=== PATIENT | male | born 1975 | race Asian ===

== ENCOUNTER 2022-02-20 21:41 | Inpatient (IN) | payer OTHER ==
[2022-02-20] MEDS ORDERED: DEXAMETHASONE SOD PHOSPHATE 10 MG/1 ML VIAL IVPUSH ONE (22:30)
[2022-02-20] MEDS ORDERED: diazePAM 5 MG TABLET PO ONE (22:30)
[2022-02-20] MEDS ORDERED: diazePAM 5 MG TABLET ONE (22:56)
[2022-02-20] MEDS ORDERED: DEXAMETHASONE SOD PHOSPHATE 10 MG/1 ML VIAL ONE (22:57)
[2022-02-20 23:02] LABS: BASO % 0.7 % (0-2.0); EOS % 2.2 % (0-4.5); HEMOGLOBIN 14.9 GM/dL (11.7-16.9); LYMPH % 54.5 % (8-40); MCH 29.9 pg (25.7-33.7); MCHC 34.6 g/dl (32.0-35.9); MEAN CELL VOLUME 86.3 fl (80-96); MEAN PLT VOLUME 9.4 fl (7.5-11.1); MONO % 8.7 % (3.8-10.2); NEUT % 33.9 % (42.8-82.8); PLATELET COUNT 183 10^3/uL (134-434); RBC 4.99 M/mm3 (4.00-5.60); RDW 12.8 % (11.9-15.9); WHITE BLOOD COUNT 4.4 K/mm3 (4.0-10.0)
[2022-02-20 23:22] LABS: CHLORIDE 97 mmol/L (98-107); SODIUM 133 mmol/L (136-145)
[2022-02-20 23:23] LABS: ALBUMIN 4.6 g/dl (3.4-5.0); ANION GAP 8 MMOL/L (8-16); BLOOD UREA NITROGEN 18.6 mg/dL (7-18); CALCIUM 9.1 mg/dL (8.5-10.1); CO2 27 mmol/L (21-32); GLUCOSE,RANDOM 95 mg/dL (74-106)
[2022-02-20 23:26] LABS: EPI CELLS 1 /uL (0-25.1); HYALINE CASTS 0 /uL (0-3.1); PH,URINE 7.5 (5.0-8.0); URINE APPEARANCE CLEAR; URINE BACTERIA 2 /uL (0-1359); URINE BILIRUBIN NEGATIVE (NEGATIVE); URINE COLOR YELLOW; URINE GLUCOSE (UA) NEGATIVE (NEGATIVE); URINE KETONE TRACE (NEGATIVE); URINE LEUK ESTERASE NEGATIVE (NEGATIVE); URINE NITRITE NEGATIVE (NEGATIVE); URINE PROTEIN NEGATIVE (NEGATIVE); URINE RBC 56 /uL (0-23.9); URINE WBC 6 /uL (0-25.8)
[2022-02-20 23:26] LABS: SGOT/AST 17 U/L (15-37); SGPT/ALT 39 U/L (13-61)
[2022-02-20 23:28] LABS: BILIRUBIN,TOTAL 1.2 mg/dL (0.2-1); CREATININE 0.9 mg/dL (0.55-1.3); TOT PROT 7.4 g/dl (6.4-8.2)
[2022-02-20 23:29] LABS: ALK PHOS 53 U/L (45-117)
[2022-02-20] MEDS ORDERED: morphine CARPU-JECT 4 MG/1 ML DISP.SYRIN IVPUSH ONE (23:32)
[2022-02-20] MEDS ORDERED: morphine SULFATE 4 MG/ML VIAL ONE (23:40)
[2022-02-21] MEDS ORDERED: KETOROLAC TROMETHAMINE 15 MG/ML VIAL IVPUSH ONE (01:34)
[2022-02-21] MEDS ORDERED: KETOROLAC TROMETHAMINE 30 MG/1 ML VIAL ONE (01:36)
[2022-02-21] MEDS ORDERED: morphine CARPU-JECT 4 MG/1 ML DISP.SYRIN IVPUSH ONE (03:15)
[2022-02-21] MEDS ORDERED: morphine SULFATE 4 MG/ML VIAL ONE (03:15)
[2022-02-21] MEDS ORDERED: EPINEPHrine/PF 1 MG/1 ML (1:1,000) AMPULE ONE (03:38)
[2022-02-21] MEDS ORDERED: HYDROmorphone HCL CARPU-JECT 2 MG/1 ML DISP.SYRIN IVPUSH ONE ×2 (05:37→08:26)
[2022-02-21] MEDS ORDERED: HYDROmorphone HCl 2 MG/ML VIAL ONE ×2 (05:38→08:15)
[2022-02-21] MEDS ORDERED: ACETAMINOPHEN INJECTION 100 ML IVPB ONE (05:39)
[2022-02-21] MEDS: ACETAMINOPHEN 1000 MG/100 ML BAG IVPB PRN ×2 (05:46→16:32)
[2022-02-21] MEDS ORDERED: diazePAM CARPU-JECT 10 MG/2 ML DISP.SYRIN IVPUSH ONE (08:38)
[2022-02-21] MEDS ORDERED: INSULIN (NOVOLOG) ASPART 100 UNITS/ML 10ML VIAL ONE (09:19)
[2022-02-21] MEDS ORDERED: diazePAM CARPU-JECT 10 MG/2 ML DISP.SYRIN ONE (10:01)
[2022-02-21] MEDS ORDERED: PANTOPRAZOLE 40 MG TABLET PO ONE (10:01)
[2022-02-21] MEDS ORDERED: DEXAMETHASONE SOD PHOSPHATE 10 MG/1 ML VIAL ONE (10:02)
[2022-02-21] MEDS ORDERED: DOCUSATE SODIUM 100 MG CAPSULE (FP) PO ONE (10:02)
[2022-02-21] MEDS: DEXAMETHASONE SOD PHOSPHATE 4 MG/1 ML VIAL IVPUSH SCH ×3 (10:10→21:06)
[2022-02-21] MEDS: DOCUSATE SODIUM 100 MG CAPSULE (FP) PO SCH ×2 (10:10→21:06)
[2022-02-21] MEDS: PANTOPRAZOLE 40 MG TABLET PO SCH (10:10)
[2022-02-21] MEDS: DEXTROSE 5%-NORMAL SALINE 1,000 ML IV SCH (12:29)
[2022-02-21] MEDS: POLYETHYLENE GLYCOL (HEALTHYLAX) 3350 17 GM PACKET PO PRN (12:34)
[2022-02-21] MEDS: HYDROmorphone HCl 2 MG/ML VIAL IVPB PRN ×2 (12:34→21:09)
[2022-02-21] MEDS: GABAPENTIN 100 MG CAPSULE PO SCH ×2 (13:05→21:07)
[2022-02-21 14:02] VITALS: BMI 25.0
[2022-02-22] MEDS: DEXAMETHASONE SOD PHOSPHATE 4 MG/1 ML VIAL IVPUSH SCH ×4 (02:11→21:19)
[2022-02-22] MEDS: ACETAMINOPHEN 1000 MG/100 ML BAG IVPB PRN (02:27)
[2022-02-22] MEDS: HYDROmorphone HCl 2 MG/ML VIAL IVPB PRN ×2 (03:14→12:28)
[2022-02-22] MEDS: GABAPENTIN 100 MG CAPSULE PO SCH (05:23)
[2022-02-22] MEDS: DEXTROSE 5%-NORMAL SALINE 1,000 ML IV SCH (05:27)
[2022-02-22] MEDS ORDERED: diazePAM 2 MG TABLET PO PRN (08:17)
[2022-02-22 08:36] LABS: HEMATOCRIT 46.2 % (35.4-49); HEMOGLOBIN 16.1 GM/dL (11.7-16.9); MCH 30.1 pg (25.7-33.7); MCHC 34.9 g/dl (32.0-35.9); MEAN CELL VOLUME 86.4 fl (80-96); MEAN PLT VOLUME 9.6 fl (7.5-11.1); PLATELET COUNT 204 10^3/uL (134-434); RBC 5.34 M/mm3 (4.00-5.60); RDW 12.7 % (11.9-15.9); WHITE BLOOD COUNT 8.6 K/mm3 (4.0-10.0)
[2022-02-22 08:57] LABS: CALCIUM 9.6 mg/dL (8.5-10.1)
[2022-02-22 08:58] LABS: BLOOD UREA NITROGEN 20.4 mg/dL (7-18)
[2022-02-22 09:01] LABS: CREATININE 0.7 mg/dL (0.55-1.3)
[2022-02-22] MEDS: HEPARIN NA (PORCINE) 5,000 UNITS/ML 1ML VIAL SQ SCH ×2 (09:14→21:20)
[2022-02-22] MEDS: DOCUSATE SODIUM 100 MG CAPSULE (FP) PO SCH ×2 (09:14→21:18)
[2022-02-22] MEDS: PANTOPRAZOLE 40 MG TABLET PO SCH (09:14)
[2022-02-22] MEDS: POLYETHYLENE GLYCOL (HEALTHYLAX) 3350 17 GM PACKET PO PRN (09:58)
[2022-02-22] MEDS ORDERED: GABAPENTIN 300 MG CAPSULE PO SCH ×2 (14:00→22:00)
[2022-02-22] MEDS: KETOROLAC TROMETHAMINE 30 MG/1 ML VIAL IVPUSH SCH (18:39)
[2022-02-22] MEDS: GABAPENTIN 300 MG CAPSULE PO SCH (21:19)
[2022-02-23] MEDS: KETOROLAC TROMETHAMINE 30 MG/1 ML VIAL IVPUSH SCH ×3 (01:10→17:32)
[2022-02-23] MEDS: DEXAMETHASONE SOD PHOSPHATE 4 MG/1 ML VIAL IVPUSH SCH ×4 (02:37→21:56)
[2022-02-23] MEDS: GABAPENTIN 300 MG CAPSULE PO SCH ×2 (09:07→21:55)
[2022-02-23] MEDS: PANTOPRAZOLE 40 MG TABLET PO SCH (09:07)
[2022-02-23] MEDS: DOCUSATE SODIUM 100 MG CAPSULE (FP) PO SCH ×2 (09:07→21:55)
[2022-02-23] MEDS: HEPARIN NA (PORCINE) 5,000 UNITS/ML 1ML VIAL SQ SCH (09:17)
[2022-02-23] MEDS ORDERED: SODIUM PHOSPHATE/NA BIPHOS 133 ML ENEMA RC ONE (10:44)
[2022-02-23] MEDS ORDERED: GABAPENTIN 300 MG CAPSULE PO SCH ×2 (10:49→11:30)
[2022-02-23] MEDS: HYDROmorphone HCl 2 MG/ML VIAL IVPB PRN ×2 (11:34→22:02)
[2022-02-23] MEDS: POLYETHYLENE GLYCOL (HEALTHYLAX) 3350 17 GM PACKET PO PRN (12:23)
[2022-02-23 16:04] LABS: CALCIUM 9.2 mg/dL (8.5-10.1)
[2022-02-23 16:05] LABS: BLOOD UREA NITROGEN 24.3 mg/dL (7-18)
[2022-02-23 16:08] LABS: CREATININE 0.9 mg/dL (0.55-1.3)
[2022-02-24] MEDS: KETOROLAC TROMETHAMINE 30 MG/1 ML VIAL IVPUSH SCH ×3 (01:18→17:44)
[2022-02-24] MEDS: DEXAMETHASONE SOD PHOSPHATE 4 MG/1 ML VIAL IVPUSH SCH ×4 (03:23→21:59)
[2022-02-24] MEDS: HYDROmorphone HCl 2 MG/ML VIAL IVPB PRN ×3 (04:34→18:28)
[2022-02-24] MEDS: DOCUSATE SODIUM 100 MG CAPSULE (FP) PO SCH ×2 (09:05→21:59)
[2022-02-24] MEDS: GABAPENTIN 300 MG CAPSULE PO SCH ×3 (09:07→21:59)
[2022-02-24] MEDS: PANTOPRAZOLE 40 MG TABLET PO SCH (09:07)
[2022-02-24] MEDS: Methylnaltrexone Bromide 12 MG/0.6 ML KIT SQ SCH (10:56)
[2022-02-24] MEDS: POLYETHYLENE GLYCOL (HEALTHYLAX) 3350 17 GM PACKET PO SCH (14:45)
[2022-02-24] MEDS: diazePAM 5 MG TABLET PO SCH (23:21)
[2022-02-25] MEDS: KETOROLAC TROMETHAMINE 30 MG/1 ML VIAL IVPUSH SCH ×2 (02:24→09:51)
[2022-02-25] MEDS: DEXAMETHASONE SOD PHOSPHATE 4 MG/1 ML VIAL IVPUSH SCH ×4 (02:25→21:05)
[2022-02-25] MEDS: HYDROmorphone HCl 2 MG/ML VIAL IVPB PRN ×2 (06:19→15:58)
[2022-02-25] MEDS ORDERED: LIDOCAINE HCL/PF 1% SDV 5ML VIAL ONE (07:38)
[2022-02-25] MEDS ORDERED: DEXAMETHASONE SOD PHOSPHATE 10 MG/1 ML VIAL ONE (07:38)
[2022-02-25] MEDS: POLYETHYLENE GLYCOL (HEALTHYLAX) 3350 17 GM PACKET PO SCH (09:54)
[2022-02-25] MEDS: DOCUSATE SODIUM 100 MG CAPSULE (FP) PO SCH ×2 (09:54→21:33)
[2022-02-25] MEDS: GABAPENTIN 300 MG CAPSULE PO SCH ×3 (09:54→21:32)
[2022-02-25] MEDS: PANTOPRAZOLE 40 MG TABLET PO SCH (09:54)
[2022-02-25] MEDS: Methylnaltrexone Bromide 12 MG/0.6 ML KIT SQ SCH (11:28)
[2022-02-25] MEDS ORDERED: MINERAL OIL ENEMA 133 ML ENEMA RC ONE (12:38)
[2022-02-25] MEDS ORDERED: IOHEXOL 180 MG/1 ML ML IJ ONE ×2 (12:46)
[2022-02-25] MEDS ORDERED: LIDOCAINE 1% P/F 10 MG/ML VIAL PNB ONE ×2 (12:46)
[2022-02-25] MEDS ORDERED: DEXAMETHASONE SOD PHOSPHATE 10 MG/1 ML VIAL IVPUSH ONE ×2 (12:46)
[2022-02-25] MEDS: KETOROLAC TROMETHAMINE 30 MG/1 ML VIAL IVPUSH PRN (18:23)
[2022-02-25] MEDS: diazePAM 5 MG TABLET PO SCH (21:33)
[2022-02-26] MEDS: HYDROmorphone HCl 2 MG/ML VIAL IVPB PRN ×4 (01:59→23:01)
[2022-02-26] MEDS: DEXAMETHASONE SOD PHOSPHATE 4 MG/1 ML VIAL IVPUSH SCH ×4 (02:53→21:36)
[2022-02-26] MEDS: KETOROLAC TROMETHAMINE 30 MG/1 ML VIAL IVPUSH PRN (06:09)
[2022-02-26 08:50] LABS: HEMATOCRIT 46.4 % (35.4-49); HEMOGLOBIN 15.6 GM/dL (11.7-16.9); MCHC 33.7 g/dl (32.0-35.9); MEAN CELL VOLUME 85.9 fl (80-96); MEAN PLT VOLUME 9.8 fl (7.5-11.1); PLATELET COUNT 264 10^3/uL (134-434); RDW 12.7 % (11.9-15.9); WHITE BLOOD COUNT 12.1 K/mm3 (4.0-10.0)
[2022-02-26] MEDS: PANTOPRAZOLE 40 MG TABLET PO SCH (09:00)
[2022-02-26] MEDS: DOCUSATE SODIUM 100 MG CAPSULE (FP) PO SCH ×2 (09:00→21:36)
[2022-02-26] MEDS: GABAPENTIN 300 MG CAPSULE PO SCH ×3 (09:01→21:37)
[2022-02-26] MEDS: POLYETHYLENE GLYCOL (HEALTHYLAX) 3350 17 GM PACKET PO SCH (09:06)
[2022-02-26 09:13] LABS: CALCIUM 9.4 mg/dL (8.5-10.1)
[2022-02-26 09:15] LABS: ALBUMIN 3.9 g/dl (3.4-5.0); BLOOD UREA NITROGEN 25.1 mg/dL (7-18); MAGNESIUM 2.3 mg/dL (1.8-2.4)
[2022-02-26 09:18] LABS: CREATININE 0.8 mg/dL (0.55-1.3)
[2022-02-26 09:20] LABS: TOT PROT 6.8 g/dl (6.4-8.2)
[2022-02-26] MEDS: HEPARIN NA (PORCINE) 5,000 UNITS/ML 1ML VIAL SQ SCH ×2 (14:10→21:36)
[2022-02-26] MEDS: Methylnaltrexone Bromide 12 MG/0.6 ML KIT SQ SCH (14:10)
[2022-02-26] MEDS: SODIUM CHLORIDE 1,000 ML IV SCH (17:09)
[2022-02-26] MEDS: diazePAM 5 MG TABLET PO SCH (21:36)
[2022-02-27] MEDS: DEXAMETHASONE SOD PHOSPHATE 4 MG/1 ML VIAL IVPUSH SCH ×4 (03:00→20:38)
[2022-02-27] MEDS: HYDROmorphone HCl 2 MG/ML VIAL IVPB PRN ×2 (05:34→20:43)
[2022-02-27] MEDS: SODIUM CHLORIDE 1,000 ML IV SCH ×3 (06:37→20:47)
[2022-02-27] MEDS: HEPARIN NA (PORCINE) 5,000 UNITS/ML 1ML VIAL SQ SCH ×3 (06:38→21:56)
[2022-02-27] MEDS: DOCUSATE SODIUM 100 MG CAPSULE (FP) PO SCH ×2 (09:47→21:55)
[2022-02-27] MEDS: POLYETHYLENE GLYCOL (HEALTHYLAX) 3350 17 GM PACKET PO SCH (09:47)
[2022-02-27] MEDS: GABAPENTIN 300 MG CAPSULE PO SCH ×3 (09:48→21:55)
[2022-02-27] MEDS: PANTOPRAZOLE 40 MG TABLET PO SCH (09:48)
[2022-02-27] MEDS: Methylnaltrexone Bromide 12 MG/0.6 ML KIT SQ SCH (10:04)
[2022-02-27] MEDS: diazePAM 5 MG TABLET PO SCH (21:55)
[2022-02-28] MEDS: DEXAMETHASONE SOD PHOSPHATE 4 MG/1 ML VIAL IVPUSH SCH ×4 (02:28→21:42)
[2022-02-28] MEDS: HYDROmorphone HCl 2 MG/ML VIAL IVPB PRN ×3 (03:17→22:55)
[2022-02-28] MEDS: HEPARIN NA (PORCINE) 5,000 UNITS/ML 1ML VIAL SQ SCH ×3 (06:57→21:42)
[2022-02-28] MEDS: POLYETHYLENE GLYCOL (HEALTHYLAX) 3350 17 GM PACKET PO SCH ×2 (09:31→09:47)
[2022-02-28] MEDS: SODIUM CHLORIDE 1,000 ML IV SCH ×3 (09:31→23:02)
[2022-02-28] MEDS: DOCUSATE SODIUM 100 MG CAPSULE (FP) PO SCH ×3 (09:32→21:41)
[2022-02-28] MEDS: GABAPENTIN 300 MG CAPSULE PO SCH ×3 (09:34→21:42)
[2022-02-28] MEDS: PANTOPRAZOLE 40 MG TABLET PO SCH (09:45)
[2022-02-28 10:08] LABS: HEMATOCRIT 49.2 % (35.4-49); HEMOGLOBIN 16.5 GM/dL (11.7-16.9); MCHC 33.6 g/dl (32.0-35.9); MEAN CELL VOLUME 86.4 fl (80-96); MEAN PLT VOLUME 9.5 fl (7.5-11.1); PLATELET COUNT 282 10^3/uL (134-434); RDW 12.6 % (11.9-15.9); WHITE BLOOD COUNT 10.1 K/mm3 (4.0-10.0)
[2022-02-28] MEDS: Methylnaltrexone Bromide 12 MG/0.6 ML KIT SQ SCH (10:24)
[2022-02-28 10:26] LABS: CALCIUM 9.1 mg/dL (8.5-10.1)
[2022-02-28 10:27] LABS: BLOOD UREA NITROGEN 20.8 mg/dL (7-18); MAGNESIUM 2.2 mg/dL (1.8-2.4)
[2022-02-28 10:30] LABS: CREATININE 0.8 mg/dL (0.55-1.3)
[2022-02-28] MEDS: diazePAM 5 MG TABLET PO SCH (21:41)
[2022-03-01] MEDS ORDERED: ACETAMINOPHEN 1000 MG/100 ML BAG IVPB ONE (01:34)
[2022-03-01] MEDS: HEPARIN NA (PORCINE) 5,000 UNITS/ML 1ML VIAL SQ SCH ×3 (06:51→21:09)
[2022-03-01] MEDS: GABAPENTIN 300 MG CAPSULE PO SCH ×3 (10:22→21:09)
[2022-03-01] MEDS: DEXAMETHASONE SOD PHOSPHATE 4 MG/1 ML VIAL IVPUSH SCH (10:23)
[2022-03-01] MEDS: PANTOPRAZOLE 40 MG TABLET PO SCH (10:23)
[2022-03-01] MEDS: POLYETHYLENE GLYCOL (HEALTHYLAX) 3350 17 GM PACKET PO SCH (10:23)
[2022-03-01] MEDS: DOCUSATE SODIUM 100 MG CAPSULE (FP) PO SCH ×2 (10:23→21:08)
[2022-03-01] MEDS: SODIUM CHLORIDE 1,000 ML IV SCH (10:36)
[2022-03-01 11:15] LABS: BLOOD UREA NITROGEN 20.4 mg/dL (7-18); CALCIUM 8.9 mg/dL (8.5-10.1)
[2022-03-01 11:19] LABS: CREATININE 0.7 mg/dL (0.55-1.3)
[2022-03-01] MEDS: Methylnaltrexone Bromide 12 MG/0.6 ML KIT SQ SCH (13:13)
[2022-03-01] MEDS: HYDROmorphone HCl 2 MG/ML VIAL IVPB PRN ×2 (13:13→19:38)
[2022-03-01] MEDS: diazePAM 5 MG TABLET PO SCH (21:08)
[2022-03-02] MEDS: HYDROmorphone HCl 2 MG/ML VIAL IVPB PRN ×3 (01:20→17:39)
[2022-03-02] MEDS: HEPARIN NA (PORCINE) 5,000 UNITS/ML 1ML VIAL SQ SCH ×2 (06:03→13:29)
[2022-03-02] MEDS: DOCUSATE SODIUM 100 MG CAPSULE (FP) PO SCH ×2 (09:53→22:02)
[2022-03-02] MEDS: POLYETHYLENE GLYCOL (HEALTHYLAX) 3350 17 GM PACKET PO SCH (09:54)
[2022-03-02] MEDS: GABAPENTIN 300 MG CAPSULE PO SCH ×3 (09:54→22:02)
[2022-03-02] MEDS: PANTOPRAZOLE 40 MG TABLET PO SCH (09:54)
[2022-03-02] MEDS ORDERED: DEXAMETHASONE SOD PHOSPHATE 4 MG/1 ML VIAL IVPUSH SCH (10:00)
[2022-03-02 10:31] LABS: ALBUMIN 3.9 g/dl (3.4-5.0); BLOOD UREA NITROGEN 20.8 mg/dL (7-18)
[2022-03-02 10:33] LABS: CREATININE 0.7 mg/dL (0.55-1.3)
[2022-03-02 10:35] LABS: BILIRUBIN,TOTAL 1.3 mg/dL (0.2-1); TOT PROT 6.8 g/dl (6.4-8.2)
[2022-03-02] MEDS: Methylnaltrexone Bromide 12 MG/0.6 ML KIT SQ SCH (12:33)
[2022-03-02] MEDS ORDERED: SODIUM CHLORIDE 1 GM TABLET PO ONE (12:51)
[2022-03-02] MEDS ORDERED: HYDROmorphone HCl 2 MG/ML VIAL IVPB ONE (19:22)
[2022-03-02] MEDS: diazePAM 5 MG TABLET PO SCH (22:01)
[2022-03-03] MEDS: HYDROmorphone HCl 2 MG/ML VIAL IVPB PRN (03:23)
[2022-03-03] MEDS: DOCUSATE SODIUM 100 MG CAPSULE (FP) PO SCH ×2 (09:50→22:29)
[2022-03-03] MEDS: GABAPENTIN 300 MG CAPSULE PO SCH ×3 (09:50→22:29)
[2022-03-03] MEDS: POLYETHYLENE GLYCOL (HEALTHYLAX) 3350 17 GM PACKET PO SCH (09:50)
[2022-03-03] MEDS: PANTOPRAZOLE 40 MG TABLET PO SCH (09:50)
[2022-03-03] MEDS: Methylnaltrexone Bromide 12 MG/0.6 ML KIT SQ SCH (09:51)
[2022-03-03 11:17] LABS: BLOOD UREA NITROGEN 25.8 mg/dL (7-18)
[2022-03-03 11:19] LABS: CALCIUM 9.4 mg/dL (8.5-10.1)
[2022-03-03 11:21] LABS: ALBUMIN 3.9 g/dl (3.4-5.0)
[2022-03-03 11:24] LABS: CREATININE 0.8 mg/dL (0.55-1.3)
[2022-03-03 11:25] LABS: BILIRUBIN,TOTAL 1.2 mg/dL (0.2-1); TOT PROT 6.5 g/dl (6.4-8.2)
[2022-03-03] MEDS ORDERED: ceFAZolin SODIUM 1 GM VIAL ONE (11:35)
[2022-03-03] MEDS ORDERED: BACITRACIN 15 GM TUBE TOPICAL OINTMENT ONE (11:44)
[2022-03-03] MEDS ORDERED: BUPIVACAINE HCL/PF 0.5% (5MG/ML) 10 ML VIAL ONE (11:44)
[2022-03-03] MEDS ORDERED: THROMBIN (BOVINE) 5,000 UNIT VIAL TP ONE (11:44)
[2022-03-03] MEDS ORDERED: DEXAMETHASONE SOD PHOSPHATE 4 MG/1 ML VIAL ONE (12:02)
[2022-03-03] MEDS ORDERED: LIDOCAINE HCL/PF 2% SDV 5ML VIAL ONE (12:02)
[2022-03-03] MEDS ORDERED: ONDANSETRON 4 MG/2 ML VIAL ONE (12:02)
[2022-03-03] MEDS ORDERED: ROCURONIUM BROMIDE 50 MG/5 ML SYRINGE ONE ×2 (12:03→13:21)
[2022-03-03] MEDS ORDERED: SUCCINYLCHOLINE CHLORIDE 200 MG/10 ML SYRINGE ONE (12:03)
[2022-03-03] MEDS ORDERED: PROPOFOL 40 ML ONE (12:03)
[2022-03-03] MEDS ORDERED: MIDAZOLAM HCL 2 MG/2 ML SINGLE DOSE VIAL ONE (12:03)
[2022-03-03] MEDS ORDERED: ceFAZolin SODIUM 1 GM VIAL IVPB ONE (12:34)
[2022-03-03] MEDS ORDERED: GLYCOPYRROLATE 0.2 MG/1 ML VIAL ONE (13:57)
[2022-03-03] MEDS ORDERED: NEOSTIGMINE METHYLSULFATE 0.5 MG/1 ML - 10 ML MDV ONE (13:57)
[2022-03-03] MEDS ORDERED: ONDANSETRON 4 MG/2 ML VIAL IVPUSH PRN (14:29)
[2022-03-03] MEDS ORDERED: LACTATED RINGERS SOLUTION 1,000 ML IV SCH (14:30)
[2022-03-03] MEDS ORDERED: HYDROmorphone HCl 2 MG/ML VIAL IVPB PRN (14:32)
[2022-03-03] MEDS: diazePAM 5 MG TABLET PO SCH (22:28)
[2022-03-04] MEDS ORDERED: COSYNTROPIN 0.25 MG VIAL IVPUSH ONE (06:00)
[2022-03-04] MEDS: DOCUSATE SODIUM 100 MG CAPSULE (FP) PO SCH ×2 (10:43→21:33)
[2022-03-04] MEDS: PANTOPRAZOLE 40 MG TABLET PO SCH (10:43)
[2022-03-04] MEDS: POLYETHYLENE GLYCOL (HEALTHYLAX) 3350 17 GM PACKET PO SCH (10:43)
[2022-03-04] MEDS: GABAPENTIN 300 MG CAPSULE PO SCH ×3 (10:44→21:34)
[2022-03-04 11:56] LABS: BASO % 0.4 % (0-2.0); EOS % 0.2 % (0-4.5); HEMATOCRIT 45.9 % (35.4-49); HEMOGLOBIN 15.9 GM/dL (11.7-16.9); LYMPH % 14.7 % (8-40); MCH 29.5 pg (25.7-33.7); MCHC 34.5 g/dl (32.0-35.9); MEAN CELL VOLUME 85.3 fl (80-96); MEAN PLT VOLUME 8.7 fl (7.5-11.1); MONO % 13.2 % (3.8-10.2); NEUT % 71.5 % (42.8-82.8); PLATELET COUNT 268 10^3/uL (134-434); RBC 5.38 M/mm3 (4.00-5.60); RDW 12.6 % (11.9-15.9); WHITE BLOOD COUNT 9.3 K/mm3 (4.0-10.0)
[2022-03-04 12:10] LABS: CALCIUM 9.2 mg/dL (8.5-10.1)
[2022-03-04 12:11] LABS: ALBUMIN 3.7 g/dl (3.4-5.0); BLOOD UREA NITROGEN 21.1 mg/dL (7-18)
[2022-03-04 12:15] LABS: CREATININE 0.8 mg/dL (0.55-1.3)
[2022-03-04 12:16] LABS: BILIRUBIN,TOTAL 1.4 mg/dL (0.2-1)
[2022-03-04 12:17] LABS: TOT PROT 6.4 g/dl (6.4-8.2)
[2022-03-04 12:24] LABS: BLOOD UREA NITROGEN 22.4 mg/dL (7-18); CALCIUM 9.3 mg/dL (8.5-10.1)
[2022-03-04 12:25] LABS: ALBUMIN 3.7 g/dl (3.4-5.0)
[2022-03-04 12:28] LABS: BILIRUBIN,TOTAL 1.4 mg/dL (0.2-1); CREATININE 0.8 mg/dL (0.55-1.3)
[2022-03-04 12:30] LABS: TOT PROT 6.3 g/dl (6.4-8.2)
[2022-03-04] MEDS: Methylnaltrexone Bromide 12 MG/0.6 ML KIT SQ SCH (13:50)
[2022-03-04] MEDS: SODIUM CHLORIDE 1 GM TABLET PO SCH (16:47)
[2022-03-04] MEDS: diazePAM 5 MG TABLET PO SCH (21:34)
[2022-03-04] MEDS ORDERED: MELATONIN 5 MG TABLETS PO ONE (23:32)
[2022-03-05] MEDS ORDERED: COSYNTROPIN 0.25 MG VIAL IVPUSH ONE (06:00)
[2022-03-05] MEDS: GABAPENTIN 300 MG CAPSULE PO SCH ×3 (09:07→22:55)
[2022-03-05] MEDS: POLYETHYLENE GLYCOL (HEALTHYLAX) 3350 17 GM PACKET PO SCH (09:07)
[2022-03-05] MEDS: DOCUSATE SODIUM 100 MG CAPSULE (FP) PO SCH ×2 (09:07→22:54)
[2022-03-05] MEDS: SODIUM CHLORIDE 1 GM TABLET PO SCH (09:09)
[2022-03-05] MEDS: PANTOPRAZOLE 40 MG TABLET PO SCH (09:09)
[2022-03-05] MEDS: Methylnaltrexone Bromide 12 MG/0.6 ML KIT SQ SCH (11:26)
[2022-03-05] MEDS: diazePAM 5 MG TABLET PO SCH (22:54)
[2022-03-06] MEDS ORDERED: MELATONIN 5 MG TABLETS PO PRN (01:10)
[2022-03-06 04:37] VITALS: RESP 20
[2022-03-06] MEDS: DOCUSATE SODIUM 100 MG CAPSULE (FP) PO SCH (10:17)
[2022-03-06] MEDS: SODIUM CHLORIDE 1 GM TABLET PO SCH (10:17)
[2022-03-06] MEDS: PANTOPRAZOLE 40 MG TABLET PO SCH (10:17)
[2022-03-06] MEDS: GABAPENTIN 300 MG CAPSULE PO SCH ×2 (10:17→13:23)
[2022-03-06] MEDS: POLYETHYLENE GLYCOL (HEALTHYLAX) 3350 17 GM PACKET PO SCH (10:18)
[2022-03-06 12:09] VITALS: BP 128/73; PULSE 105; TEMP 98.6
[2022-03-06] MEDS: Methylnaltrexone Bromide 12 MG/0.6 ML KIT SQ SCH (12:36)
[2022-03-06 13:36] LABS: CALCIUM 8.9 mg/dL (8.5-10.1)
[2022-03-06 13:37] LABS: ALBUMIN 3.5 g/dl (3.4-5.0); BLOOD UREA NITROGEN 21.5 mg/dL (7-18)
[2022-03-06 13:40] LABS: CREATININE 0.8 mg/dL (0.55-1.3)
[2022-03-06 13:41] LABS: TOT PROT 6.4 g/dl (6.4-8.2)
[2022-03-06 13:42] LABS: BILIRUBIN,TOTAL 1.3 mg/dL (0.2-1)
== END 2022-03-06 13:37 | disposition home or self-care (01) | DRG 310 ==
LOC: JER 21:41 → JERBED 02-21 04:07 → INTOOBSV 02-21 04:07 → UNDOADMOB 02-21 04:07 → OBSVTOIN 02-21 04:07 → J7W 02-21 11:40 → JERBED 02-21 11:40 → J7W 02-23 06:30 → J5S 02-23 06:30 → OBSVTOIN 02-23 12:01 → J7W 02-23 12:01 → J5S 02-23 12:01 → JERBED 02-23 12:01 → J5S 03-01 19:40
PROVIDERS: ADMIT Internal Medicine; ATTEND Family Medicine
PROC: 01NB0ZZ Release Lumbar Nerve, Open Approach (ICD-10-PCS; 2022-03-03)
PROC: 0SB40ZZ Excision of Lumbosacral Disc, Open Approach (ICD-10-PCS; principal; 2022-03-03 10:30)
DX: M51.17 Intervertebral disc disorders with radiculopathy, lumbosacral region (principal); E87.1 Hypo-osmolality and hyponatremia; E27.40 Unspecified adrenocortical insufficiency; K21.9 Gastro-esophageal reflux disease without esophagitis; M79.605 Pain in left leg; K59.00 Constipation, unspecified
CPT/HCPCS: 36415; 72100-TC-FY; 72131-TC; 72148-TC; 74018-TC-FY; 74177-TC; 76000-TC-FY; 80048; 80053; 81003; 82024; 82436; 82533; 83605; 83735; 83930; 83935; 84133; 84300; 84443; 84484; 85025; 85027; 85379; 85651; 86140; 86850; 86900; 86901; 87086; 88304-TC; 93005; 93010; 94010; 94760; 97110-GP; 97116-GP; 97161-GP; 99285-25; C9803-CS; J0834; J1100; J1644; Q9967; U0003; U0005